=== PATIENT | male | born 1995 | race Caucasian/White ===

== ENCOUNTER 2020-10-16 20:32 | Inpatient (IN) | payer OTHER ==
[~2020-10-16] VITALS: Ht 162.6 cm; Wt 68.9 kg
[2020-10-16] MEDS ORDERED: MORPHINE SULFATE 4 MG/ML VIAL. IV ONE (22:00)
[2020-10-16] MEDS ORDERED: ONDANSETRON PF 4 MG/2 ML VIAL. IV ONE (22:00)
[2020-10-16 22:13] LABS: BASO # 0.1 x10^3/uL (0.0-0.2); BASO % 0 % (0-3); EOS % 0 % (0-3); HEMOGLOBIN 14.7 g/dL (13.0-17.5); LYMPH # 0.9 x10^3/uL (1.0-4.8); LYMPH % 6 % (24-48); MEAN CORPUSCULAR HEMOGLOBIN 30 pg (25-35); MEAN CORPUSCULAR HGB CONC 34 g/dL (31-37); MEAN CORPUSCULAR VOLUME 87 fL (79-100); MONO # 0.7 x10^3/uL (0.0-1.1); MONO % 5 % (0-9); NEUT # 12.9 x10^3/uL (1.8-7.7); NEUT % 89 % (31-73); PLATELET COUNT 142 x10^3/uL (140-400); RED BLOOD COUNT 4.97 x10^6/uL (4.30-5.70); RED CELL DISTRIBUTION WIDTH 12.8 % (11.5-14.5); WHITE BLOOD COUNT 14.5 x10^3/uL (4.0-11.0)
[2020-10-16] MEDS ORDERED: ONDANSETRON PF 4 MG/2 ML VIAL. IV PRN (22:15)
--- NOTE | 2020-10-16 22:15 | ED.ADGEN ---
Past Medical History Past Medical History: No Pertinent History Past Surgical History: No Surgical History Smoking Status: Former Smoker Alcohol Use: Sober General Adult EDM: Chief Complaint: UPPER EXTREMITY INJURY HPI: HPI: Patient is a 24 year old male, brought to the emergency department by EMS, accompanied by PD with reports of left upper arm pain. Patient was playing basketball when he fell into a fence. Patient states he is right-handed. Denies any numbness, tingling, or decreased sensation lightheadedness left hand and fingers. He denies any decreased range of motion of his left fingers, hand, or wrist. She denies any head, neck, or back pain. He denies any loss consciousness, nausea, vomiting. Patient was given 100 mcg of fentanyl in route to the ER. He reported that the pain is better at rest after the medications. He rates pain a 10 out of 10 with any movement or palpation. Review of Systems: Review of Systems: Complete ROS is negative unless otherwise noted in HPI. Current Medications: Current Medications Medications (Trade) Dose Ordered Sig/Kennedy Start Time Stop Time Status Last Admin Dose Admin Morphine Sulfate (Morphine Sulfate) 4 mg PRN Q2HR PRN 10/16/20 22:15 10/17/20 22:14 10/16/20 22:33 4 MG Ondansetron HCl (Zofran) 4 mg PRN Q8HRS PRN 10/16/20 22:15 10/17/20 22:14 Allergies: Allergies: Allergies Coded Allergies Type Severity Reaction Last Updated Verified No Known Drug Allergies 10/16/20 No Physical Exam: PE: See Above Constitutional: Well developed, well nourished, no acute distress, non-toxic appearance. [] HENT: Normocephalic, atraumatic, bilateral external ears normal, nose normal. [] Eyes: PERRLA, EOMI, conjunctiva normal, no discharge. [] Neck: Normal range of motion, no stridor. [] Cardiovascular:Heart rate regular rhythm Lungs & Thorax: Respirations even and unlabored, no retractions, no respiratory distress Skin: Warm, dry, no erythema, no rash. [] Extremities: LUE: Diffuse edema to the left distal humerus, 2+ brachial pulse, 2+ radial pulse, sensation intact, obvious deformity of the distal left humerus, no cyanosis, ROM limited due to pain Neurologic: Alert and oriented X 3, normal sensation, no focal deficits noted. [] Psychologic: Affect normal, judgement normal, mood normal. [] Current Patient Data: Labs: Laboratory Tests Test 10/16/20 22:00 White Blood Count 14.5 x10^3/uL (4.0-11.0) H Red Blood Count 4.97 x10^6/uL (4.30-5.70) Hemoglobin 14.7 g/dL (13.0-17.5) Hematocrit 43.0 % (39.0-53.0) Mean Corpuscular Volume 87 fL (79-100) Mean Corpuscular Hemoglobin 30 pg (25-35) Mean Corpuscular Hemoglobin Concent 34 g/dL (31-37) Red Cell Distribution Width 12.8 % (11.5-14.5) Platelet Count 142 x10^3/uL (140-400) Neutrophils (%) (Auto) 89 % (31-73) H Lymphocytes (%) (Auto) 6 % (24-48) L Monocytes (%) (Auto) 5 % (0-9) Eosinophils (%) (Auto) 0 % (0-3) Basophils (%) (Auto) 0 % (0-3) Neutrophils # (Auto) 12.9 x10^3/uL (1.8-7.7) H Lymphocytes # (Auto) 0.9 x10^3/uL (1.0-4.8) L Monocytes # (Auto) 0.7 x10^3/uL (0.0-1.1) Eosinophils # (Auto) 0.0 x10^3/uL (0.0-0.7) Basophils # (Auto) 0.1 x10^3/uL (0.0-0.2) Segmented Neutrophils % 86 % (35-66) H Band Neutrophils % 5 % (0-9) Lymphocytes % 4 % (24-48) L Monocytes % 5 % (0-10) Platelet Estimate Adequate (ADEQUATE) Sodium Level 140 mmol/L (136-145) Potassium Level 3.7 mmol/L (3.5-5.1) Chloride Level 104 mmol/L (98-107) Carbon Dioxide Level 29 mmol/L (21-32) Anion Gap 7 (6-14) Blood Urea Nitrogen 21 mg/dL (8-26) Creatinine 1.2 mg/dL (0.7-1.3) Estimated GFR (Cockcroft-Gault) 74.4 Glucose Level 114 mg/dL (70-99) H Calcium Level 9.4 mg/dL (8.5-10.1) Laboratory Tests 10/16/20 22:00 Laboratory Tests 10/16/20 22:00 Vital Signs: Vital Signs Date Time Temp Pulse Resp B/P (MAP) Pulse Ox O2 Delivery O2 Flow Rate FiO2 10/16/20 23:06 72 168/70 (102) 95 Room Air 10/16/20 20:35 98.0 18 98.0 EKG: EKG: [] Heart Score: C/O Chest Pain: No Risk Scores: Score 0 - 3: 2.5% MACE over next 6 weeks - Discharge Home Score 4 - 6: 20.3% MACE over next 6 weeks - Admit for Clinical Observation Score 7 - 10: 72.7% MACE over next 6 weeks - Early Invasive Strategies Radiology/Procedures: Radiology/Procedures: [] Course & Med Decision Making: Course & Med Decision Making Pertinent Labs and Imaging studies reviewed. (See chart for details) 2157- consulted Dr. Prudencio pedroza, will admit to the hospitalist and order every [address]. [address] patient in a sling. [id number]-spoke with Dr. Braden who is the admitting physician, and care was assumed following discussion of patient. Will admit patient for left humerus fracture. Patient's vital signs stable. Patient remains afebrile, appears nontoxic, resp irations even and unlabored. Patient will be admitted to the medical/surgical floor. Patient's case and plan of care also discussed with Dr. Umaña [] Maia Disclaimer: Miaa Disclaimer: This electronic medical record was generated, in whole or in part, using a voice recognition dictation system. Departure Departure Impression: Primary Impression: Left humeral fracture Disposition: ADMITTED INPATIENT Admitting Physician: SO Abreu) Condition: STABLE Referrals: NO PCP (PCP) Attending Signature Attending Signature I have reviewed the PA/CELL COVERER's note and plan of care. I was available for consultation as needed during the patient's visit in the emergency department. I agree with the clinical impression, plan, and disposition. Problem Qualifiers Primary Impression: Left humeral fracture Encounter type: initial encounter Humerus Location: shaft Fracture type: closed Fracture morphology: spiral Fracture alignment: displaced Qualified Codes: S42.342A - Displaced spiral fracture of shaft of humerus, left arm, initial encounter for closed fracture ANYI FOURNIER APRN Oct 16, 2020 22:15 VALERIANO UMAÑA DO Oct 17, 2020 04:18
[2020-10-16 22:21] LABS: CALCIUM 9.4 mg/dL (8.5-10.1); CREATININE 1.2 mg/dL (0.7-1.3); GFR 74.4; POTASSIUM 3.7 mmol/L (3.5-5.1)
[2020-10-16] MEDS: MORPHINE SULFATE 4 MG/ML VIAL. IV PRN (22:33)
[2020-10-16 23:08] LABS: % BANDS 5 % (0-9); % LYMPHS 4 % (24-48); % MONOS 5 % (0-10); % SEGS 86 % (35-66); PLT ESTIMATE ADEQUATE (ADEQUATE)
--- NOTE | 2020-10-16 23:12 | RAD ---
Examination: 2 views of the left shoulder and 3 views of the left humerus HISTORY: History of left arm pain, fall COMPARISON: None available Findings/ impression: Mild displaced oblique fracture of the distal diaphysis of the humerus. The humerus head is within th e glenoid. Electronically signed by: Fabrizio Rutherford MD (10/16/2020 11:10 PM) [id number]
[2020-10-17 03:00] VITALS: BP 164/71
[2020-10-17 07:00] VITALS: BP 124/82
[2020-10-17] MEDS: MORPHINE SULFATE 4 MG/ML VIAL. IV PRN ×4 (07:28→22:05)
[2020-10-17 11:00] VITALS: BP 120/78
--- NOTE | 2020-10-17 11:38 | HP ---
ADMIT DATE: 10/16/2020 CHIEF COMPLAINT: Right arm pain after hitting the fence while playing basketball. HISTORY OF PRESENT ILLNESS: The patient is a pleasant 24-year-old male who has been incarcerated for the past four years. He states he gets out in about 9 more years. He was playing basketball at the nursing home. He got pushed into the fence. He now has right arm pain. We did some imaging, he has got a humerus fracture. I discussed the case with ER physician. We are going to admit the patient and consult orthopedics. He is going to surgery tomorrow. PAST MEDICAL HISTORY: Benign. ALLERGIES: None. FAMILY HISTORY: Diabetes. SOCIAL HISTORY: He does not drink, smoke or take drugs, but he used to smoke. He is currently in nursing home for the past four years. He gets out in 9 years. MEDICATIONS: Reviewed. Please refer to the MRAD. REVIEW OF SYSTEMS: GENERAL: No history of weight change, weakness or fevers. SKIN: No bruising, hair changes or rashes. EYES: No blurred, double or loss of vision. NOSE AND THROAT: No history of nosebleeds, hoarseness or sore throat. HEART: No history of palpitations, chest pain or shortness of breath on exertion. LUNGS: Denies cough, hemoptysis, wheezing or shortness of breath. GASTROINTESTINAL: Denies changes in appetite, nausea, vomiting, diarrhea or constipation. GENITOURINARY: No history of frequency, urgency, hesitancy or nocturia. NEUROLOGIC: Denies history of numbness, tingling, tremor or weakness. PSYCHIATRIC: No history of panic, anxiety or depression. ENDOCRINE: No history of heat or cold intolerance, polyuria or polydipsia. EXTREMITIES: He complains of right arm pain. PHYSICAL EXAMINATION: VITALS: Within normal limits and are stable. GENERAL: No apparent distress. Alert and oriented. HEENT: Normal cephalic atraumatic, external auditory canals are patent. EYES: Extraocular muscles are intact, pupils are equally round and reactive to light and accommodation. MUSCULOSKELETAL: Well developed, well nourished, good range of motion. ENDOCRINE: No thyromegaly was palpated. LYMPHATICS: No cervical chain or axillary nodes were noted. HEMATOPOIETIC: No bruising. NECK: Supple, no JVD, no thyromegaly was noted. LUNGS: Clear to auscultation in all lung blair without rhonchi or wheezing. HEART: RRR, S1, S2 present. Peripheral pulses intact, no obvious murmurs were noted. ABDOMEN: Soft, nontender. Positive bowel sounds no organomegaly, normal bowel sounds. EXTREMITIES: The right arm is in a brace. NEUROLOGIC: Normal speech, normal tone. A and O x 3, moves all extremities, no obvious focal deficits. PSYCHIATRIC: Normal affect, normal mood. Stable. SKIN: No ulcerations or rashes, good skin turgor, no jaundice. VASCULAR: Good capillary refill, neurovascular bundle appears to be intact. ASSESSMENT AND PLAN: Traumatic arm injury with humerus fracture. The patient has been admitted. We have consulted orthopedics. He is going to surgery tomorrow. For now, pain meds, IV fluids, home meds. Deep venous thrombosis prophylaxis. Full code. MARTIN/RAELY DR: Freddy TID: [id number]
[2020-10-17 15:00] VITALS: BP 125/65
[2020-10-17 19:00] VITALS: BP 123/85
--- NOTE | 2020-10-17 21:32 | PDOC2 ---
Consult: Patient seen October 17, 2020 at 7:45 AM HISTORY: Patient seen and evaluated today secondary to left shoulder injury. Patient was injured while being incarcerated injuring his left upper extremity. Denies any numbness or tingling. States he had immediate pain and difficulty moving his arm. PAST MEDICAL/SURGICAL/FAMILY HISTORY/SOCIAL HISTORY/ AND ROS were reviewed on intake to include multiple system review. Copied to EHR. EXAM: -------- Well-nourished well-developed patient General: No acute distress. HEENT: Normocephalic. Respiratory: Respirations are non-labored. Cardiovascular: No edema. Abdomen: soft Neurologic: Alert. Psychiatric: Cooperative. Left upper extremity reveals neurovascular status to be intact. There is tenderness to palpation over the left upper arm. Limited elbow and shoulder range of motion due to pain. X-rays were reviewed which reveal a mild to moderately displaced distal third humerus fracture of the left. ASSESSMENT & PLAN: Closed left distal humerus fracture I discussed with the patient treatment options. We discussed options both surgical and nonsurgical (medication, injection, therapy, lifestyle modification, assistive devices and other modalities). We also discussed pros and cons of each. Greater than 30 minutes was spent with the patient with more than 50 percent of the time in discussion with regards to treatment and medical decision-making. Risk, benefits, alternative treatments, if any, and possible complications of surgery were discussed in detail, including, but not limited to: infection, scar, blood loss, chronic pain, need for reoperation, injury to nerve, artery or vein, blood clots, implant failure if used in procedure, and possible morbidity and mortality. Discussion of anticipated outcome, the post- operative course, and the potential rehab needs. Set up for open reduction internal fixation left humerus on October 18. KASH FLYNN DO Oct 17, 2020 21:32
[2020-10-17 23:00] VITALS: BP_SYST 133; BP_SYST 143; BP_DIAS 65; BP_DIAS 80
[2020-10-18] VITALS (9 sets, daily range): BP systolic 108–158; BP diastolic 66–97
[2020-10-18] MEDS ORDERED: ONDANSETRON PF 4 MG/2 ML VIAL. IVP PRN ×2 (02:45→12:45)
[2020-10-18] MEDS: MORPHINE SULFATE 2 MG/ML VIAL. IV PRN ×2 (03:03→08:20)
[2020-10-18] MEDS ORDERED: ceFAZolin SODIUM IV Push 1 GM VIAL. IVP ONE (06:00)
[2020-10-18] MEDS ORDERED: HYDROmorphone 2 MG/ML VIAL IVP PRN (06:15)
[2020-10-18] MEDS ORDERED: fentaNYL PF VIAL 100 MCG/2 ML VIAL IVP PRN (06:15)
[2020-10-18] MEDS ORDERED: PROCHLORPERAZINE 10 MG/2 ML VIAL. IVP PRN (06:15)
[2020-10-18] MEDS ORDERED: IV RINGERS,LACTATED 1000ML 1,000 ML IV SCH (06:15)
[2020-10-18] MEDS ORDERED: MORPHINE SULFATE 2 MG/ML VIAL. IVP PRN ×2 (06:15→12:45)
[2020-10-18] MEDS ORDERED: PROPOFOL 10 MG/ML (20ML) VIAL. IV ONE (08:57)
[2020-10-18] MEDS ORDERED: LIDOCAINE 2% PF 5 ML VIAL. ONE (08:57)
[2020-10-18] MEDS ORDERED: DEXAMETHASONE SOD PHOS 4 MG/ML VIAL ONE (09:51)
[2020-10-18] MEDS ORDERED: MIDAZOLAM HCL/PF 2 MG/2 ML VIAL. ONE (09:51)
[2020-10-18] MEDS ORDERED: fentaNYL PF VIAL 100 MCG/2 ML VIAL ONE ×2 (09:51→12:22)
[2020-10-18] MEDS ORDERED: ONDANSETRON PF 4 MG/2 ML VIAL. ONE (09:51)
[2020-10-18] MEDS ORDERED: BUPIVACAINE-EPI 0.25% 30 ML VIAL KIT. ONE ×2 (10:17→10:18)
[2020-10-18] MEDS ORDERED: SEVOFLURANE 61 TO 120 MINUTES. IH ONE (11:09)
[2020-10-18] MEDS ORDERED: PROCHLORPERAZINE 10 MG/2 ML VIAL. ONE (12:29)
[2020-10-18] MEDS: fentaNYL PF VIAL 100 MCG/2 ML VIAL IVP PRN ×2 (12:33→12:45)
[2020-10-18] MEDS ORDERED: POLYETHYLENE GLYCOL 3350 17 GM PACKET. PO PRN (12:45)
[2020-10-18] MEDS ORDERED: DEXTROSE 50% 25 GM / 50ML DISP.SYRIN. IV PRN (12:45)
[2020-10-18] MEDS ORDERED: traMADol 50 MG TABLET PO PRN (12:45)
[2020-10-18] MEDS ORDERED: HYDROcodone/APAP 7.5/325MG 1 TAB TABLET PO PRN (12:45)
--- NOTE | 2020-10-18 13:18 | PDOC ---
[employer] PROGRESS NOTE Date of Service DOS: DATE: 10/18/20 TIME: 13:17 Chief Complaint Chief Complaint Postop ORIF of Closed left distal humerus fracture History of Present Illness History of Present Illness 10/18/2020 Patient seen and examined in the postop area He is pleasantly confused semisedated Discussed with RN Chart reviewed Vitals/I&O Vitals/I&O: Vital Signs Date Time Temp Pulse Resp B/P (MAP) Pulse Ox O2 Delivery O2 Flow Rate FiO2 10/18/20 12:56 98.7 96 14 135/68 99 Nasal Cannula 2 98.7 I & O 10/17/20 10/17/20 10/18/20 15:00 23:00 07:00 Intake Total 0 ml Balance 0 ml Physical Exam General: mild distress, Other (Confused sedated) Heart: Regular rate Lungs: Clear Abdomen: Normal bowel sounds Extremities: Other (Left arm in brace/sling) Skin: No rashes, No breakdown Assessment and Plan Assessmemt and Plan Problems Medical Problems: (1) Left humeral fracture Status: Acute Postop ORIF of closed left distal humerus fracture Plan Wound care As needed pain meds Home meds DVT prophylaxis Full code Hope to discharge back to [facility] tomorrow morning if stable Comment Review of Relevant I have reviewed the following items albert (where applicable) has been applied. Medications: Current Medications Medications (Trade) Dose Ordered Sig/Kennedy Route PRN Reason Start Time Stop Time Status Last Admin Dose Admin Cefazolin Sodium (Ancef) 1 gm 1X ONCE IVP 10/18/20 06:00 10/18/20 06:01 DC 10/18/20 09:59 Morphine Sulfate (Morphine Sulfate) 4 mg PRN Q2HR PRN IV SEVERE PAIN 7-10 10/18/20 02:45 10/18/20 12:43 DC 10/18/20 08:20 Fentanyl Citrate (Fentanyl 2ml Vial) 50 mcg PRN Q5MIN PRN IVP MODERATE PAIN 4-6 10/18/20 06:15 10/18/20 15:00 10/18/20 12:45 Ringer's Solution 1,000 ml @ 30 mls/hr Q24H IV 10/18/20 06:15 10/18/20 18:14 10/18/20 09:06 Prochlorperazine Edisylate (Compazine) 5 mg PACU PRN PRN IVP NAUSEA, MRX1 10/18/20 06:15 10/18/20 15:00 10/18/20 12:31 Bupivacaine HCl/ Epinephrine Bitart (Sensorcain-Epi 0.25% Kit) 30 ml STK-MED ONCE .ROUTE 10/18/20 10:17 10/18/20 10:18 DC 10/18/20 10:18 Justifications for Admission Other Justification LAQUITA MC III DO Oct 18, 2020 13:18
--- NOTE | 2020-10-18 13:21 | NUR ---
Patient has returned to room, Drowsy. Left arm dressing dry and intact, arm in sling, elevated on pillow. Temp 98.4 122/66-63-17 O2 sat 96% on room air at this time (92-96) Guard at bedside.
--- NOTE | 2020-10-18 14:00 | NUR ---
Pt left arm elevated on pillow, has sling. Fingers warm, wiggle well. 2 ice packs to upper left arm. No obvious increase in upper arm, shoulder swelling noted from preoperatively. Trace swelling left fingers, color pink, warm to touch, good sensation per patient. VSS. Guard at bedside.
[2020-10-18] MEDS: MORPHINE SULFATE 4 MG/ML VIAL. IVP PRN ×3 (14:09→23:06)
--- NOTE | 2020-10-18 14:20 | NUR ---
Noted redness with irregular edges right arm up to shoulder after giving patient IV morphine, no hives or c/o or evidence of itching noted. Marked edges of red area, monitored
--- NOTE | 2020-10-18 14:30 | NUR ---
No change in neurovascular status left arm,hand.
--- NOTE | 2020-10-18 14:45 | NUR ---
Redness right arm faded. Left arm remains elevated, ice packs in place. Fingers warm, pink, wiggle well. Radial pulse easily felt, rate regular, WNL.
[2020-10-18] MEDS: HYDROcodone/APAP 7.5/325MG 1 TAB TABLET PO PRN (16:03)
[2020-10-18] MEDS: ceFAZolin SODIUM IV Push 1 GM VIAL. IVP SCH ×2 (16:29→21:55)
--- NOTE | 2020-10-18 16:30 | NUR ---
Patient up to bathroom to void, declined use of urinal. Patient then to recliner with left arm on pillow, using sling. No change neurovascular status left arm.
--- NOTE | 2020-10-18 18:30 | NUR ---
Continue frequent neurovascular checks as ordered, no changes noted.
--- NOTE | 2020-10-18 21:30 | PDOC4 ---
OPERATIVE NOTE: DATE OF PROCEDURE: October 18, 2020 PROCEDURE: Open reduction internal fixation left distal humerus POSTOPERATIVE DIAGNOSIS: Closed left distal humerus fracture SURGEON: Kash Flannery DO SURFACER OPERATOR: None EBL: Less than 200 cc SPECIMEN: None ANESTHESIA: General POSITION: Lateral decubitus COMPLICATIONS: None. GROSS FINDINGS: Comminuted oblique fracture of the distal humeral shaft DISPOSITION: To PACU stable. IMPLANT SPECIFICATIONS: Synthes posterior lateral plate DESCRIPTION OF PROCEDURE: Patient seen evaluated in the preoperative holding area. Consent was signed and operative site was marked. Department anesthesia to wheeled the patient back to the operating room. Department of anesthesia administered general anesthetic maintain control of the airway. Patient was then positioned on the operative table on a beanbag in the lateral decubitus position with his arm over a pillow. Sterile prep and drape was performed of the left upper extremity. At this point a 20 cm posterior incision was made directly over the posterior upper arm centered over the olecranon distally. Soft tissue dissection was carried out sharply down to the fascia layer. The bulky fashion midportion of the triceps was sharply incised and blunt dissection was carried out of the triceps musculature. At this point this carried us down to the posterior aspect of the humerus and the fracture was visible. At this point copious irrigation was run through the wound to remove fracture hematoma. Direct reduction was performed of all fracture fragments. 2 interfragmentary screws were then placed using standard AO technique but in doing so there was splintering of the fracture but alignment was fairly well-maintained. A posterior lateral plate was selected and the radial nerve was identified and protected. The plate was placed on the posterior aspect of the humerus and fixed under compression using standard AO technique with unicortical locking screws distally and 3 bicortical screws more proximally. Copious irrigation was run through the wound and it was patted dry. Radial nerve was inspected and found to be in good condition. Layered closure was performed first closing the fascia with an interrupted 0 Vicryl the subcutaneous tissues were closed with 0 Vicryl and 2-0 Monocryl followed by a subcuticular 3 oh barbed suture. Skin glue was applied. Large bu lky soft dressing was applied. Anesthesia was reversed and the patient was transferred to postop in apparent stable condition. Prognosis is guarded secondary to the patient's current incarceration and his dependability and complying with restrictions. DISPOSITION: Patient Will be transferred to postop and anticipate discharge when stable. Prognosis: Good KASH FLANNERY DO Oct 18, 2020 9:30 pm
[2020-10-19] MEDS: HYDROcodone/APAP 7.5/325MG 1 TAB TABLET PO PRN ×2 (00:39→03:57)
[2020-10-19 02:48] VITALS: BP 140/84
[2020-10-19] MEDS: ceFAZolin SODIUM IV Push 1 GM VIAL. IVP SCH (03:56)
[2020-10-19] MEDS ORDERED: MAGNESIUM HYDROXIDE 2,400 MG/30 ML ORAL.SUSP. PO PRN (06:00)
[2020-10-19 07:00] VITALS: BP 123/60
[2020-10-19] MEDS ORDERED: CELECOXIB 100 MG CAPSULE. PO SCH (09:00)
[2020-10-19] MEDS ORDERED: SENNOSIDES/DOCUSATE 8.6/50MG TABLET. PO SCH (09:00)
[2020-10-19] MEDS ORDERED: MULTIVITAMIN with MINERAL TABLET. PO SCH (09:00)
[2020-10-19] MEDS ORDERED: HYDR-2765 PO (10:49)
[2020-10-19 10:53] LABS: HEMATOCRIT 36.7 % (39.0-53.0); HEMOGLOBIN 12.6 g/dL (13.0-17.5)
[2020-10-19 11:00] VITALS: BP 127/68
--- NOTE | 2020-10-19 11:20 | DS ---
DATE OF DISCHARGE: 10/19/2020 ADMISSION DIAGNOSIS: Left humerus fracture. DISCHARGE DIAGNOSIS: Postoperative open reduction and internal fixation of left humerus fracture. HOSPITAL COURSE: The patient is a pleasant 24-year-old male who resides at [facility] for the past 4 years. He gets out in 9 years. Basically, he was playing basketball, got shoved into the fence and suffered a left arm fracture. He was admitted. We consulted Orthopedic. Yesterday, he went for left humerus ORIF. Today, I saw him and examined him. He is at his baseline. He wants to go back to residential. We plan to discharge. I am going to leave prescription for p.r.n. [place]. DISPOSITION: [facility]. ACTIVITY: As tolerated. DIET: Low sodium. MEDICATIONS: [place] 5 mg q.6 hours p.r.n. TOTAL TIME: 34 minutes. MARTIN/PRO DR: Freddy TID: [id number]
--- NOTE | 2020-10-19 11:59 | NUR ---
report called to Isabella at the [facility] at the [facility]. meds reviewed. RN attempted to call Dr. Flannery for follow up information and have not heard back. contact information provided in discharge paperwork. IV removed intact. pt stable upon dc.
[2020-10-19] MEDS ORDERED: BISACODYL 10 MG SUPP.RECT. PR PRN (16:00)
== END 2020-10-19 14:00 | DRG 494 ==
LOC: ER 20:32 → EEVIPCON 20:32 → 6 SOUTH 23:35 → ER 23:45
PROVIDERS: ADMIT Internal Medicine; ATTEND Internal Medicine
PROC: 0PSG04Z Reposition Left Humeral Shaft with Internal Fixation Device, Open Approach (ICD-10-PCS; principal; 2020-10-18 10:30)
DX: S42.392A Other fracture of shaft of left humerus, initial encounter for closed fracture (principal); Y93.67 Activity, basketball; Z20.822 Contact with and (suspected) exposure to COVID-19; Z83.3 Family history of diabetes mellitus; Z87.891 Personal history of nicotine dependence; Y92.320 Baseball field as the place of occurrence of the external cause; Y99.8 Other external cause status; Z79.899 Other long term (current) drug therapy
CPT/HCPCS: 36415; 73030; 73060; 76000; 80048; 85007; 85014; 85018; 85025; 87426; 96374; 96375; A4213; A4565; A4930; A6253; A6402; A6449; A6450; C1713; J0690; J0780; J1100; J2250; J2270; J2405; J2704; J3010; J7120; U0003; U0005; 97116-GP; 97535-GO; 99285-25; G0378